=== PATIENT | female | born 1995 | race Caucasian/White ===

== ENCOUNTER 2023-11-02 08:05 | Outpatient (CLI) | payer OTHER ==
[2023-11-02 10:22] LABS: BHCG - Serum Negative (NEGATIVE); Pregs Control Background? CLEAR/WHITE (CLR/WHITE); Pregs Control Bar Appear? YES (CONTROL BAR)
== END 2023-11-02 08:06 | disposition home or self-care (01) ==
LOC: CSHLAB 08:05
PROVIDERS: ATTEND Surgery
DX: Z01.812 Encounter for preprocedural laboratory examination (principal); K60.5 Anorectal fistula
CPT/HCPCS: 84703